=== PATIENT | female | born 1965 | race African-American/Black ===

== ENCOUNTER 2020-04-14 19:44 | Emergency (ER) | payer MEDICAID ==
[~2020-04-14] VITALS: Ht 165.1 cm; Wt 68.2 kg
[2020-04-14] MEDS ORDERED: ALBU8HFA IH (19:46)
[2020-04-14 19:48] VITALS: BP 155/97
== END 2020-04-14 20:11 | disposition left against medical advice (07) ==
LOC: EMS 19:44
DX: R06.02 Shortness of breath (principal); Z53.21 Procedure and treatment not carried out due to patient leaving prior to being seen by health care provider

== ENCOUNTER 2023-09-28 18:10 | Emergency (ER) | payer MEDICAID ==
[~2023-09-28] VITALS: Ht 170.2 cm; Wt 70.5 kg
[~2023-09-28 18:10] MED LIST: ALBU18HF12 IH
[2023-09-28] MEDS ORDERED: BECL10.62 IH (18:19)
[2023-09-28] MEDS ORDERED: LISI10TA24 PO (18:19)
[2023-09-28] MEDS ORDERED: ALBU0.8311 NEB (18:19)
[2023-09-28 18:20] VITALS: BP 137/79; PULSE 91; RESP 18; TEMP 98.3
== END 2023-09-28 20:00 | disposition left against medical advice (07) ==
LOC: EMS 18:17
DX: K08.89 Other specified disorders of teeth and supporting structures (principal); Z53.21 Procedure and treatment not carried out due to patient leaving prior to being seen by health care provider
CPT/HCPCS: 99281; Z7502